=== PATIENT | male | born 1965 | race Caucasian/White ===

== ENCOUNTER 2019-01-12 12:53 | Emergency (ER) | payer SELFPAY ==
[2019-01-12 13:46] VITALS: BP 145/91
--- NOTE | 2019-01-12 14:11 | ED ---
Skin Complaint - HPI Summary HPI Summary: 53 yr old with itchy, scaly, dry, irritated skin to the forearm dorsum bilateral and also to the bilateral pretibial surfaces. No drainage, no fever, chills, no oozing. The patient is itchying. Onset of this rash is from about 3 weeks ago. He works in [employer]. No other new exposures. No tongue or lip swelling. No SOB. No other complaints. - History of Current Complaint Chief Complaint: UCSkin Time Seen by Provider: 01/12/19 13:54 Stated Complaint: SKIN CONCERN Pain Intensity: 0 - Allergy/Home Medications Allergies/Adverse Reactions: Allergies Allergy/AdvReac Type Severity Reaction Status Date / Time No Known Allergies Allergy Verified 01/12/19 13:41 Home Medications: Home Medications diphenhydrAMINE HCl [Benadryl Allergy 25 MG CAP] 50 mg PO ONCE PRN 01/12/19 [ History Confirmed 01/12/19] PMH/Surg Hx/FS Hx/Imm Hx Infectious Disease History: No Infectious Disease History: Denies: Traveled Outside the [place] in Last 30 Days - Family History Known Family History: Positive: Other - denies - Social History Occupation: Employed Full-time Lives: With Family Alcohol Use: Daily Alcohol Amount: 3-24oz beer daily Substance Use Type: Reports: Marijuana Substance Use Comment - Amount & Last Used: daily Smoking Status (MU): Heavy Every Day Tobacco Smoker Type: Cigarettes, Cigars Amount Used/How Often: 1 PPD Review of Systems Constitutional: Negative Positive: Rash All Other Systems Reviewed And Are Negative: Yes Physical Exam Triage Information Reviewed: Yes Vital Signs On Initial Exam: Initial Vitals Temp Pulse Resp BP Pulse Ox 98.4 F 96 15 145/91 96 01/12/19 13:42 01/12/19 13:42 01/12/19 13:42 01/12/19 13:42 01/12/19 13:42 Vital Signs Reviewed: Yes Appearance: Positive: Well-Appearing, No Pain Distress Skin: Positive: Other - lichen like skin on both forearms, with scaling, redness , and smaller patches on the pretibial surface. Consitent with dermatitis. Head/Face: Positive: Normal Head/Face Inspection Eyes: Positive: EOMI, TC ENT: Positive: Normal ENT inspection Neck: Positive: Nontender Respiratory/Lung Sounds: Positive: Clear to Auscultation, Breath Sounds Present Cardiovascular: Positive: RRR. Negative: Murmur Abdomen Description: Positive: Nontender Musculoskeletal: Positive: Strength/ROM Intact Neurological: Positive: Sensory/Motor Intact, Alert, Oriented to Person Place, Time, CN Intact II-III, Normal Gait, Speech Normal Psychiatric: Positive: Normal Diagnostics - Vital Signs Vital Signs Temp Pulse Resp BP Pulse Ox 01/12/19 13:42 98.4 F 96 15 145/91 96 - Laboratory Lab Statement: Any lab studies that have been ordered have been reviewed, and results considered in the medical decision making process. Course/Dx - Course Course Of Treatment: 53 yr old male with dermatitis. Rx with medrol dose bryon. Fu with primary care referral. - Diagnoses Provider Diagnoses: Dermatitis, Hypertension Discharge - Sign-Out/Discharge Documenting (check all that apply): Patient Departure All imaging exams completed and their final reports reviewed: No Studies - Discharge Plan Condition: Good Disposition: HOME Prescriptions: methylPREDNISolone [Medrol Dosepak 4 MG*] 4 mg PO .SEE BRYON INSTRUCTION #1 bryon Patient Education Materials: Eczema (ED), Hypertension (ED) Referrals: No Primary Care Phys,NOPCP [Primary Care Provider] - [facility] [place] [facility] REFERRAL [Outside] - 2 Weeks - Billing Disposition and Condition Condition: GOOD Disposition: Home
== END 2019-01-12 14:15 | disposition home or self-care (01) ==
LOC: UCCORT 12:53
DX: L30.9 Dermatitis, unspecified (principal); I10 Essential (primary) hypertension; F17.210 Nicotine dependence, cigarettes, uncomplicated
CPT/HCPCS: 99202; G0463